=== PATIENT | female | born 1945 | race Caucasian/White ===

== ENCOUNTER 2019-11-08 02:41 | Emergency (ER) | payer MEDICARE, OTHER ==
[2019-11-08] MEDS ORDERED: MORPHINE SULFATE 2 MG INJ IV ONE (03:08)
[2019-11-08] MEDS ORDERED: Zofran 4 MG/2 ML VIAL IV ONE (03:08)
[2019-11-08] MEDS ORDERED: Sodium Chloride 0.9% 1000 ML 1,000 ML ONE (03:15)
[2019-11-08] MEDS ORDERED: Zofran 4 MG/2 ML VIAL ONE (03:15)
[2019-11-08] MEDS ORDERED: MORPHINE SULFATE 2 MG INJ ONE (03:15)
[2019-11-08] MEDS ORDERED: Sodium Chloride 0.9% 1000 ML 1,000 ML IV SCH (03:15)
--- NOTE | 2019-11-08 03:16 | ERPHSYRPT ---
- History of Present Illness Historian: patient, family Exam Limitations: no limitations Patient Subjective Stated Complaint: Patient states " I was sleeping and then the pain woke me up". Patient states my stomach just started burning. Triage Nursing Assessment: Patient arrived to ER with [facility]. Patient overall color pale. Patient with complaints of pain to center of ABD that radiates into back that is intermittent. Patient denies pain or discomfort upon palpitation. Patient with hyperactive BS in all 4 quads. ABD soft round non-distended. Patient denies loose stools, Nausea, and vomiting. Patient states last BM was which she states was normal for her. No edema present. Urine collected. Yellow in color. Oral mucosa slightly dry yet pink in color. Last oral intake per patient 11/07/19. Physician History: Sudden onset of upper abd pain with radiation to RUQ. No fever. No NVD. Hx of constipation. Pt has been feeling bloated for some time but having dailoy BMs. Timing/Duration: hour(s) (3) Activities at Onset: sleep Quality: burning Abdominal Pain Onset Location: periumbilical Pain Radiation: back Severity of Pain-Max: severe Severity of Pain-Current: moderate Modifying Factors: Improves With: nothing Associated Symptoms: back Previous symptoms: same symptoms as today (same onset but didn't come to ER 1 yr ago), no recent treatment Allergies/Adverse Reactions: codeine Allergy (Verified 11/08/19 02:49) Penicillins Allergy (Verified 11/08/19 02:47) Home Medications: Linaclotide [Linzess] 72 mcg PO DAILY 11/08/19 [History] Polyethylene Glycol 3350 [Miralax] 17 gm PO DAILY 11/08/19 [History] Rosuvastatin Calcium 10 mg PO DAILY 11/08/19 [History] Hx Tetanus, Diphtheria Vaccination/Date Given: No Hx Influenza Vaccination/Date Given: Yes Hx Pneumococcal Vaccination/Date Given: Yes Immunizations Up to Date: Yes - Review of Systems Constitutional: No Fever, No Chills Eyes: No Symptoms Ears, Nose, & Throat: No Symptoms Respiratory: No Cough, No Dyspnea Cardiac: No Chest Pain, No Edema, No Syncope Abdominal/Gastrointestinal: Abdominal Pain, No Nausea, No Vomiting, No Diarrhea Genitourinary Symptoms: No Dysuria Musculoskeletal: No Back Pain, No Neck Pain Skin: No Rash Neurological: No Dizziness, No Focal Weakness, No Sensory Changes Psychological: No Symptoms Endocrine: No Symptoms All Other Systems: Reviewed and Negative - Past Medical History Neurological History: No Pertinent History ENT History: Cataracts Cardiac History: High Cholesterol Respiratory History: No Pertinent History Endocrine Medical History: No Pertinent History Musculoskeletal History: No Pertinent History GI Medical History: Diverticulosis, Polyps History: No Pertinent History Psycho-Social History: No Pertinent History Female Reproductive Disorders: No Pertinent History - Past Surgical History Past Surgical History: Yes Neuro Surgical History: No Pertinent History Cardiac: No Pertinent History Respiratory: No Pertinent History Gastrointestinal: Cholecystectomy Genitourinary: No Pertinent History Musculoskeletal: No Pertinent History Female Surgical History: Hysterectomy - Social History Smoking Status: Never smoker Exposure to second hand smoke: Yes Drug Use: none Patient Lives Alone: No Significant Family History: no pertinent family hx - Female History Hx Last Menstrual Period: POST Hx Now: No - Nursing Vital Signs Nursing Vital Signs: Initial Vital Signs Temperature 97.1 F 11/08/19 02:59 Pulse Rate 68 11/08/19 02:59 Respiratory Rate 18 11/08/19 02:59 Blood Pressure 168/66 11/08/19 02:59 O2 Sat by Pulse Oximetry 100 11/08/19 02:59 Pain Scale Pain Intensity 0 - Physical Exam General Appearance: no apparent distress, alert Eye Exam: PERRL/EOMI, eyes nml inspection Ears, Nose, Throat Exam: normal ENT inspection, pharynx normal, moist mucous membranes Neck Exam: normal inspection, non-tender, supple, full range of motion Respiratory Exam: normal breath sounds, lungs clear, No respiratory distress Cardiovascular Exam: regular rate/rhythm, normal heart sounds Gastrointestinal/Abdomen Exam: soft, normal bowel sounds, tenderness ( epigastric and RUQ), No mass, No guarding, No organomegaly Pelvic Exam: not done Rectal Exam: deferred Back Exam: normal inspection, normal range of motion, No CVA tenderness, No vertebral tenderness Extremity Exam: normal inspection, normal range of motion, pelvis stable Neurologic Exam: alert, oriented x 3, cooperative, normal mood/affect, nml cerebellar function, sensation nml, No motor deficits Skin Exam: normal color, warm, dry SpO2: 100 - Course Nursing assessment & vital signs reviewed: Yes EKG Interpreted by Me: Sinus Rhythm, NORMAL AXIS, NORMAL INTERVALS, NORMAL QRS - CT Exams Abdomen/Pelvis CT Interpretation: Tele-radiologist Report, Other (large [id number] cystic mass in right ovary) Ordered Tests: Active Orders 24 hr Category Date Time Status EKG-ER Only STAT Care 11/08/19 03:08 Active IV Insertion STAT Care 11/08/19 03:08 Active NPO (ED) STAT Care 11/08/19 03:08 Active ABDOMEN AND PELVIS W CONTRAST [CT] Stat Exams 11/08/19 03:30 Taken BMP Stat Lab 11/08/19 03:21 Completed CBC W DIFF Stat Lab 11/08/19 03:21 Completed Hepatic Function Panel Stat Lab 11/08/19 03:21 Completed LIPASE Stat Lab 11/08/19 03:21 Completed PROTIME WITH INR Stat Lab 11/08/19 03:21 Completed TROPONIN Q3H Lab 11/08/19 03:21 Completed UA W/RFX UR CULTURE Stat Lab 11/08/19 03:21 Completed Medication Summary Generic Name Dose Route Start Last Admin Trade Name Freq PRN Reason Stop Dose Admin Sodium Chloride 1,000 mls @ 200 mls/hr 11/08/19 03:15 11/08/19 03:21 Sodium Chloride 0.9% 1000 Ml IV 12/08/19 03:14 200 mls/hr .Q5H LEI Administration Discontinued Medications Generic Name Dose Route Start Last Admin Trade Name Freq PRN Reason Stop Dose Admin Morphine Sulfate 2 mg 11/08/19 03:08 11/08/19 03:20 Morphine Sulfate 2 Mg Inj IV 11/08/19 03:09 2 mg STAT ONE Administration Morphine Sulfate Confirm 11/08/19 03:15 Morphine Sulfate 2 Mg Inj Administered 11/08/19 03:16 Dose 2 mg .ROUTE .STK-MED ONE Ondansetron HCl 4 mg 11/08/19 03:08 11/08/19 03:19 Zofran 4 Mg/2 Ml Vial IV 11/08/19 03:09 4 mg STAT ONE Administration Ondansetron HCl Confirm 11/08/19 03:15 Zofran 4 Mg/2 Ml Vial Administered 11/08/19 03:16 Dose 4 mg .ROUTE .STK-MED ONE Lab/Rad Data: Laboratory Result Diagrams 11/08/19 03:21 11/08/19 03:21 Laboratory Results 11/08/19 11/08/19 11/08/19 Range/Units 03:21 03:21 03:21 WBC (4.0-10.5) K/mm3 RBC (4.1-5.4) M/mm3 Hgb (12.0-16.0) gm/dl Hct (35-47) % MCV (78-100) fl MCH (26-32) pg MCHC (32-36) g/dl RDW (11.5-14.0) % Plt Count (150-450) K/mm3 MPV (7.5-11.0) fl Gran % (36.0-66.0) % Eos # (Auto) (0-0.5) Absolute Lymphs (auto) (1.0-4.6) Absolute Monos (auto) (0.0-1.3) Lymphocytes % (24.0-44.0) % Monocytes % (0.0-12.0) % Eosinophils % (0.00-5.0) % Basophils % (0.0-0.4) % Absolute Granulocytes (1.4-6.9) Basophils # (0-0.4) PT 11.8 (9.95-12.35) SECONDS INR 1.04 (0.8-3.0) Sodium (137-145) mmol/L Potassium (3.5-5.1) mmol/L Chloride (98-107) mmol/L Carbon Dioxide (22-30) mmol/L Anion Gap (5-15) MEQ/L BUN (7-17) mg/dL Creatinine (0.52-1.04) mg/dL Estimated GFR ML/MIN Glucose (74-106) mg/dL Calcium (8.4-10.2) mg/dL Total Bilirubin (0.2-1.3) mg/dL Direct Bilirubin (0.0-0.4) mg/dL AST (14-36) U/L ALT (0-35) U/L Alkaline Phosphatase (38-126) U/L Troponin I < 0.012 (0.000-0.034) ng/mL Serum Total Protein (6.3-8.2) g/dL Albumin (3.5-5.0) g/dL Lipase (23-300) U/L Urine Color YELLOW (YELLOW) Urine Appearance CLEAR (CLEAR) Urine pH 6.0 (5-6) Ur Specific Stuart 1.011 (1.005-1.025) Urine Protein NEGATIVE (Negative) Urine Ketones NEGATIVE (NEGATIVE) Urine Blood NEGATIVE (0-5) Larry/ul Urine Nitrite NEGATIVE (NEGATIVE) Urine Bilirubin NEGATIVE (NEGATIVE) Urine Urobilinogen NEGATIVE (0-1) mg/dL Ur Leukocyte Esterase NEGATIVE (NEGATIVE) Urine WBC (Auto) 3-5 (0-5) /HPF Urine RBC (Auto) 0-2 (0-2) /HPF U Epithel Cells (Auto) RARE (FEW) /HPF Urine Bacteria (Auto) NONE (NEGATIVE) /HPF Urine Mucus (Auto) SLIGHT (NEGATIVE) /HPF Urine Culture Reflexed NO (NO) Urine Glucose NEGATIVE (NEGATIVE) mg/dL 11/08/19 11/08/19 Range/Units 03:21 03:21 WBC 8.2 (4.0-10.5) K/mm3 RBC 4.80 (4.1-5.4) M/mm3 Hgb 13.9 (12.0-16.0) gm/dl Hct 42.4 (35-47) % MCV 88.3 (78-100) fl MCH 29.0 (26-32) pg MCHC 32.8 (32-36) g/dl RDW 12.9 (11.5-14.0) % Plt Count 224 (150-450) K/mm3 MPV 10.2 (7.5-11.0) fl Gran % 57.3 (36.0-66.0) % Eos # (Auto) 0.17 (0-0.5) Absolute Lymphs (auto) 2.58 (1.0-4.6) Absolute Monos (auto) 0.71 (0.0-1.3) Lymphocytes % 31.7 (24.0-44.0) % Monocytes % 8.7 (0.0-12.0) % Eosinophils % 2.1 (0.00-5.0) % Basophils % 0.2 (0.0-0.4) % Absolute Granulocytes 4.67 (1.4-6.9) Basophils # 0.02 (0-0.4) PT (9.95-12.35) SECONDS INR (0.8-3.0) Sodium 140 (137-145) mmol/L Potassium 3.4 L (3.5-5.1) mmol/L Chloride 107 (98-107) mmol/L Carbon Dioxide 27 (22-30) mmol/L Anion Gap 9.2 (5-15) MEQ/L BUN 11 (7-17) mg/dL Creatinine 0.66 (0.52-1.04) mg/dL Estimated GFR > 60.0 ML/MIN Glucose 109 H (74-106) mg/dL Calcium 9.4 (8.4-10.2) mg/dL Total Bilirubin 0.50 (0.2-1.3) mg/dL Direct Bilirubin 0.2 (0.0-0.4) mg/dL AST 24 (14-36) U/L ALT 15 (0-35) U/L Alkaline Phosphatase 88 (38-126) U/L Troponin I (0.000-0.034) ng/mL Serum Total Protein 7.7 (6.3-8.2) g/dL Albumin 4.4 (3.5-5.0) g/dL Lipase 162 (23-300) U/L Urine Color (YELLOW) Urine Appearance (CLEAR) Urine pH (5-6) Ur Specific Stuart (1.005-1.025) Urine Protein (Negative) Urine Ketones (NEGATIVE) Urine Blood (0-5) Larry/ul Urine Nitrite (NEGATIVE) Urine Bilirubin (NEGATIVE) Urine Urobilinogen (0-1) mg/dL Ur Leukocyte Esterase (NEGATIVE) Urine WBC (Auto) (0-5) /HPF Urine RBC (Auto) (0-2) /HPF U Epithel Cells (Auto) (FEW) /HPF Urine Bacteria (Auto) (NEGATIVE) /HPF Urine Mucus (Auto) (NEGATIVE) /HPF Urine Culture Reflexed (NO) Urine Glucose (NEGATIVE) mg/dL - Progress Progress: improved Progress Note: 11/08/19 06:[address] scan. Labs all within normal limits including normal urinalysis. CT scan did show a large right ovarian cyst/mass with the size of 15 x 11 x 10. Discussed with patient about follow-up with [facility] for further care. Patient in agreement. With Dr. Herrera recommends getting Ca-125 level and CEA level. Considering eventual referral to [facility] oncology given the size. We will see patient in his office for further care and possible referral. Angel with patient about plans from Dr. Herrera they are in agreement. Will discharge home. Discussed with : Quincy Will see patient in: office Counseled pt/family regarding: lab results, diagnosis, need for follow-up, rad results - Departure Departure Disposition: Home Clinical Impression: Ovarian cyst, right, Ovarian cystic mass Condition: Stable Critical Care Time: No Referrals: MOISES CLAYTON MD [Primary Care Provider] - CURLY HERRERA DO [ACTIVE STAFF] - Instructions: Ovarian Cyst (DC) Additional Instructions: Monitor symptoms closely. Take medication as provided. Use [id number] Tylenol Motrin first if able. Follow-up with [facility] as discussed. Return to ER if worse. Prescriptions: Hydrocodone/APAP 5/325 [[place] 5/325 mg] 1 each PO Q6H PRN PRN #10 tablet MDD 20mg PRN Reason: Pain
[2019-11-08 03:19] LABS: Absolute Neutrophil Ct (ANC) 4.67 (1.4-6.9); BASOPHIL % 0.2 % (0.0-0.4); Basophil (Absolute #) 0.02 (0-0.4); Eosinophil % 2.1 % (0.00-5.0); Eosinophil (Absolute #) 0.17 (0-0.5); Hematocrit 42.4 % (35-47); Hemoglobin 13.9 gm/dl (12.0-16.0); Lymphocyte (Absolute #) 2.58 (1.0-4.6); Lymphocytes % 31.7 % (24.0-44.0); Mean Cell Volume 88.3 fl (78-100); Mean Corpuscular Hgb Concent. 32.8 g/dl (32-36); Mean Platelet Volume 10.2 fl (7.5-11.0); Monocyte (Absolute #) 0.71 (0.0-1.3); Monocytes % 8.7 % (0.0-12.0); Neutrophil % 57.3 % (36.0-66.0); Platelet Count 224 K/mm3 (150-450); Red Cell Distribution Width 12.9 % (11.5-14.0); White Blood Count 8.2 K/mm3 (4.0-10.5)
[2019-11-08 03:26] LABS: INR 1.04 (0.8-3.0); PROTIME 11.8 SECONDS (9.95-12.35)
[2019-11-08 03:30] LABS: ALBUMIN 4.4 g/dL (3.5-5.0); ALKALINE PHOSPHATASE 88 U/L (38-126); ANION GAP 9.2 MEQ/L (5-15); BLOOD UREA NITROGEN 11 mg/dL (7-17); CHLORIDE 107 mmol/L (98-107); Calcium 9.4 mg/dL (8.4-10.2); Carbon Dioxide 27 mmol/L (22-30); Creatinine 1 0.66 mg/dL (0.52-1.04); Direct Bilirubin 0.2 mg/dL (0.0-0.4); Glucose 109 mg/dL (74-106); LIPASE 162 U/L (23-300); Potassium 3.4 mmol/L (3.5-5.1); SGOT/AST 24 U/L (14-36); SGPT/ALT 15 U/L (0-35); SODIUM 140 mmol/L (137-145); Total Protein 7.7 g/dL (6.3-8.2)
[2019-11-08 03:37] LABS: Appearance CLEAR (CLEAR); Bilirubin NEGATIVE (NEGATIVE); Blood NEGATIVE Ery/ul (0-5); Epithelial Cells RARE /HPF (FEW); Glucose NEGATIVE (NEGATIVE); Ketones NEGATIVE (NEGATIVE); Leukocyte Esterase NEGATIVE (NEGATIVE); Mucus SLIGHT /HPF (NEGATIVE); Nitrite NEGATIVE (NEGATIVE); Protein,Urine Dip NEGATIVE (Negative); RBC 0-2 /HPF (0-2); Specific Gravity 1.011 (1.005-1.025); Urobilinogen NEGATIVE mg/dL (0-1)
[2019-11-08 06:59] VITALS: BP 139/60
[2019-11-08 07:15] VITALS: PULSE 69; O2SAT 96
--- NOTE | 2019-11-08 08:53 | XRAY ---
Indication: Epigastric and right upper quadrant pain. Multiple contiguous axial images obtained through the abdomen and pelvis using 100 cc Isovue 370 contrast. Enteric contrast also used. Comparison: None Lung bases demonstrate minimal bilateral atelectasis/scarring. No infiltrate or effusion. Heart is not enlarged. Small hiatal hernia. Contrast in the distal esophagus presumed from gastroesophageal reflux. Contrasted stomach and bowel loops appear nonobstructed. Normal appendix. There is a 15.3 x 10.8 x 11.2 cm simple appearing cystic mass in the pelvis possibly ovary in etiology. Partial hysterectomy and cholecystectomy reported. No free fluid/air. Remaining liver, pancreas, spleen, adrenal glands, kidneys, ureters, and bladder appear unremarkable. Mild scattered aortoiliac calcifications. No AAA or pathologic retroperitoneal lymphadenopathy. Osseous structures intact with minimal/mild degenerative changes throughout the thoracolumbar spine. Mild double curvature scoliosis. Impression: 1. Large cystic mass in the pelvis as detailed possibly ovary in etiology. 2. Incidental hiatal hernia with probable gastroesophageal reflux. 3. Remaining CT abdomen/pelvis with contrast exam is negative. Comment: Preliminary interpretation was made by [facility]. No critical discrepancy.
[2019-11-09 09:12] LABS: CA 125 8.8 U/mL (0.0-35.0); CARCINOEMBRYONIC ANTIGEN 1.7 ng/mL (0.0-3.1)
== END 2019-11-08 07:16 | disposition home or self-care (01) ==
LOC: ED 02:41
DX: N83.201 Unspecified ovarian cyst, right side (principal); R10.13 Epigastric pain; R10.11 Right upper quadrant pain; Z79.899 Other long term (current) drug therapy
CPT/HCPCS: 36000; 36415; 74177; 80048; 80076; 81001; 82378; 83690; 84484; 85025; 85610; 86304; 93005; 96360; 96361; 96374; 96375; 99284; J2270; J2405

== ENCOUNTER 2019-11-23 07:53 | Day surgery (SDC) | payer MEDICARE, OTHER ==
[~2019-11-23 07:53] MED LIST: Lactated Ringers 1,000 ML IV ONE; Lactated Ringers 1,000 ML IV SCH; Sensorcaine 0.25% 10 ML ONE
[2019-11-23] MEDS ORDERED: Lactated Ringers 1,000 ML IV ONE (08:08)
[2019-11-23] MEDS ORDERED: CEFAZOLIN 2 GM-D5W BAG** 2 GM/50 ML ML IV ONE ×2 (08:11→08:37)
[2019-11-23] MEDS ORDERED: SUBLIMAZE 250 MCG/5 ML ONE (10:12)
[2019-11-23] MEDS ORDERED: Zemuron 100 MG/10 ML ONE (10:12)
[2019-11-23] MEDS ORDERED: Decadron 4 MG INJ ONE (10:12)
[2019-11-23] MEDS ORDERED: DIPRIVAN 200 MG/20 ML IV ONE (10:12)
[2019-11-23] MEDS ORDERED: Versed 2 MG/2 ML Injection ONE (10:12)
[2019-11-23] MEDS ORDERED: Zofran 4 MG/2 ML VIAL ONE (10:12)
[2019-11-23] MEDS ORDERED: Xylocaine-Mpf 2% 5 Ml Vial ONE (10:14)
[2019-11-23] MEDS ORDERED: BRIDION 200MG/2ML IV ONE (11:47)
[2019-11-23] MEDS ORDERED: SUBLIMAZE 100 MCG/2 ML ONE (12:24)
[2019-11-23] MEDS ORDERED: MORPHINE SULFATE 10 MG/ML ONE (12:41)
[2019-11-23] MEDS ORDERED: CEPACOL SORE THROAT LOZENGE PO PRN (13:50)
[2019-11-23] MEDS ORDERED: Transderm Scop 1.5MG Patch TOP ONE (15:34)
[2019-11-23] MEDS ORDERED: Zofran 4 MG/2 ML VIAL IV STA (15:35)
[2019-11-23 15:56] VITALS: BP 117/70; PULSE 78; O2SAT 97
--- NOTE | 2019-11-24 09:46 | OP ---
SURGERY DATE/TIME: 11/23/2019 1038 PREOPERATIVE DIAGNOSIS: Large pelvic mass. POSTOPERATIVE DIAGNOSIS: Large right ovarian cyst and pelvic adhesion. PROCEDURES: Laparoscopic right salpingo-oophorectomy, removal of pelvic mass and lysis of pelvic adhesions. SURGEON: Sanjay Herrera D.O. WASTEWATER ENGINEER: Estuardo Manzo surgical dental assistant. ANESTHESIA: General. ESTIMATED BLOOD LOSS: Minimal. COMPLICATIONS: None. INDICATIONS: The risks, benefits, indications and alternatives of the procedure were reviewed with the patient prior to the procedure. The patient understood the risk of infection, bleeding, bowel injury, bladder injury, ureteral injury, incisional hernia, pelvic infection, thromboembolic disorder, possible cancer that may ensue however desires to have this surgery as a possible need to alleviate her current medical condition. DESCRIPTION OF PROCEDURE AND FINDINGS: From this point the patient is taken to the operating room, given general sedation, placed in dorsal lithotomy position, prepped and draped in usual sterile fashion. From this point a 5 mm skin incision was made approximately 2 cm superior to the umbilicus where a 5 mm trocar and sleeve were advanced under direct visualization where pneumoperitoneum was obtained with 4 liters of CO2 gas. An additional incision was made in the left middle quadrant region where 5 mm incision was made and 5 mm trocar and sleeve were advanced under direct visualization. Visualization appeared the patient to have approximately as measured prior to the procedure a 15 x 12 cm right ovarian cyst with no excrescences located on the surface of the ovary and there were no solid masses that were noted and there were no gross abnormalities located on the surface of the ovary. An additional incision was made where a 10 mm trocar and sleeve were placed 2 cm above the symphysis pubis where the trocar and sleeve were advanced under direct visualization. From this point a needle was then placed in through the cystic portion and retrieval of approximately 15 cc was removed and sent for cytology. The remaining portion of the cystic portion was suctioned in its entirety with minimal spillage that was noted perhaps approximately less than 2 to 3 cc that was noted. From this point after complete suctioning of the entire cystic content, the cystic portion was then grasped with atraumatic grasper and was lifted and the LigaSure was used and was clamped over the right infundibulopelvic ligament where it was clamped, coagulated and cut through the infundibulopelvic ligament in its entirety. Hemostasis was obtained. Removing the entire cystic and ovarian portion of the right adnexa and was done so without complication. From this point secondary to adhesions located on the left adnexa between the bowel on the right and the right lower quadrant region, it was difficult to access and obtaining the left adnexa and left ovary. However after moving the bowel over it was visualized to be within normal limits however not easily accessible for removal. From this point there were adhesions between the left colon and left abdominal side wall which were lysed and were easily brought down from the left abdominal side wall. There was no bleeding that was noted on this side. From this point there was extensive irrigation was made since removing the right adnexa. There were dense adhesions that were noted on the right middle to upper quadrant between the bowel on the right side wall which were left alone secondary to the dense adhesions between the bowel and the right upper quadrant abdominal side wall. From this point the incision was then extended and the right adnexa were placed in Endo Catch bag and were removed in its entirety without complications from the suprapubic port. At this point after removal of the cystic portion of the ovary there were no other gross abnormalities located within the abdominal or pelvic region. At this point a Nathaniel-Georgie suture was used to close the fascia at the suprapubic port and was done so without complications and 0 Vicryl suture. From this point the gas is then released and the trocars removed from the abdominal region. The incisions were subsequently closed with 4-0 Monocryl suture with subsequent Dermabond on the surface. The patient was then taken out of the dorsal lithotomy position, taken out of anesthesia and was then taken to the recovery room in stable condition. All instruments and laps were accounted for x2.
== END 2019-11-23 16:05 | disposition home or self-care (01) ==
LOC: SDC 07:53
PROVIDERS: ATTEND Obstetrics & Gynecology
DX: N83.201 Unspecified ovarian cyst, right side (principal); N73.6 Female pelvic peritoneal adhesions (postinfective); Z79.899 Other long term (current) drug therapy
CPT/HCPCS: 36415; 84132; 88173; J0690; J1100; J2250; J2270; J2405; J2704; J3010; A9270-GY

== ENCOUNTER 2024-03-28 16:38 | Emergency (ER) | payer MEDICARE ==
[2024-03-28 17:17] VITALS: BP 150/73; PULSE 88; RESP 20; TEMP 97.6; O2SAT 95
--- NOTE | 2024-03-28 17:52 | ERPHSYRPT ---
- History of Present Illness Time Seen by Provider: 03/28/24 17:37 Source: patient, family (daughter) Exam Limitations: no limitations Patient Subjective Stated Complaint: Confusion Triage Nursing Assessment: Patient ambulated back to ED and transferred self to bed. Patient A+O X3. Patient's skin pink, warm and dry. Patient compains of increased confusion over the past few days. Patient left home on 03/19/2024 to go on a cruise. Patient has not had a lot of sleep. Patient also started taking Meclizine 50mg daily for 7 days. Patient states she has been having a headache on and off, but currently denies pain or discomfort. Patient states she feels "foggy". Patient also complains of intermittent productive cough. Physician History: For the past 3 months pt has had an intermittent frontal headache lasting up to 2 days; for the past 5 days dizziness(off balance); for the past 3 days chills and a cough productive of clear phlegm; today earaches. Pt denies chest pain, shortness of air, fever. Allergies/Adverse Reactions: codeine Allergy (Verified 03/28/24 16:52) Vomiting Penicillins Allergy (Verified 03/28/24 16:52) Itching states "my hands itched ,it was about 45 y[address] ago" Dr Herrera states "she should be good to receive the med" Home Medications: Linaclotide [Linzess] 72 mcg PO DAILY 11/08/19 [History] Polyethylene Glycol 3350 [Miralax] 17 gm PO DAILY 11/08/19 [History] Rosuvastatin Calcium 10 mg PO DAILY 11/08/19 [History] Hx Tetanus, Diphtheria Vaccination/Date Given: No Hx Influenza Vaccination/Date Given: Yes Hx Pneumococcal Vaccination/Date Given: Yes Immunizations Up to Date: Yes Travel Risk - International Travel Have you traveled outside of the country in past 3 weeks: No - Emerging Infectious Disease Are you exhibiting symptoms associated with any current EIDs: No - Review of Systems Constitutional: Chills, No Fever Ears, Nose, & Throat: Ear Pain Respiratory: Cough, No Dyspnea Cardiac: No Chest Pain Abdominal/Gastrointestinal: No Abdominal Pain, No Vomiting Neurological: Dizziness, Headache - Past Medical History Pertinent Past Medical History: Yes Neurological History: Migraines ENT History: Cataracts Cardiac History: High Cholesterol Respiratory History: No Pertinent History Endocrine Medical History: No Pertinent History Musculoskeletal History: Osteoarthritis GI Medical History: Diverticulosis, Polyps History: No Pertinent History Psycho-Social History: No Pertinent History Female Reproductive Disorders: No Pertinent History Other Medical History: HX LEFT SHOULDER SPRAIN AND HAD THERAPY - Past Surgical History Past Surgical History: Yes Neuro Surgical History: No Pertinent History Cardiac: No Pertinent History Respiratory: No Pertinent History Gastrointestinal: Cholecystectomy Genitourinary: No Pertinent History Musculoskeletal: No Pertinent History Female Surgical History: Hysterectomy, Tubal Ligation Other Surgical History: 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, cataract surgery bilateral Significant Family History: no pertinent family hx - Social History Smoking Status: Never smoker Exposure to second hand smoke: Yes Drug Use: none Patient Lives Alone: No - Social Determinants of Health Will the patient participate in the screening: Yes Do you worry about a steady place to live?: No Do you have any problems with any of the following?: No known problems In the past 12 months,have you had to go without utilities?: No Transportation Issues: No Has anyone in your support network made you feel unsafe?: No Have you or anyone in your house had to go without enough: No - Nursing Vital Signs Nursing Vital Signs: Initial Vital Signs Temperature 97.6 F 03/28/24 16:57 Pulse Rate 88 03/28/24 16:57 Respiratory Rate 20 03/28/24 16:57 Blood Pressure 150/73 03/28/24 16:57 O2 Sat by Pulse Oximetry 95 03/28/24 16:57 Pain Scale Pain Intensity 0 - Physical Exam General Appearance: alert Eye Exam: PERRL/EOMI Ears, Nose, Throat Exam: TMs normal, pharyngeal erythema Neck Exam: normal inspection Respiratory Exam: normal breath sounds Cardiovascular Exam: normal heart sounds Gastrointestinal/Abdominal Exam: normal bowel sounds Extremity Exam: normal inspection Mental Status Exam: alert, oriented x 3, 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 See rest of report.) Ordered Tests: Active Orders 24 hr Category Date Time Status EKG-ER Only STAT Care 03/28/24 17:53 Active IV Insertion STAT Care 03/28/24 17:53 Active CHEST 2 VIEWS (PA AND LAT) Stat Exams 03/28/24 17:53 Completed HEAD WITHOUT CONTRAST [CT] Stat Exams 03/28/24 17:54 Completed AMYLASE Stat Lab 03/28/24 17:00 Completed CBC W DIFF Stat Lab 03/28/24 17:00 Completed CMP Stat Lab 03/28/24 17:00 Completed CULTURE,URINE Stat Lab 03/28/24 17:55 Received LIPASE Stat Lab 03/28/24 17:00 Completed MAGNESIUM Stat Lab 03/28/24 17:00 Completed MONO SCREEN Stat Lab 03/28/24 17:00 Completed TROPONIN Q4H Lab 03/28/24 17:00 Completed TROPONIN Q4H Lab 03/28/24 22:00 Ordered TROPONIN Q4H Lab 03/29/24 02:00 Ordered UA W/RFX UR CULTURE Stat Lab 03/28/24 17:55 Completed Medication Summary Generic Name Dose Route Start Last Admin Trade Name Freq PRN Reason Stop Dose Admin Sodium Chloride 1,000 mls @ 100 mls/hr 03/28/24 18:00 03/28/24 18:00 Sodium Chloride 0.9% 1000 Ml IV 04/27/24 17:59 100 mls/hr .Q10H LEI Administration Lab/Rad Data: Laboratory Result Diagrams 03/28/24 17:00 03/28/24 17:00 Laboratory Results 03/28/24 03/28/24 03/28/24 Range/Units 18:30 18:30 17:55 WBC (3.98-10.04) x10^3/uL RBC (3.93-5.22) x10^6/uL Hgb (11.2-15.7) g/dL Hct (34.1-44.9) % MCV (79.4-94.8) fL MCH (25.6-32.2) pg MCHC (32.2-35.5) g/dL RDW (11.7-14.4) % Plt Count (182-369) x10^3/uL MPV (9.4-12.3) fL Gran % (34.0-71.1) % Immature Gran % (Auto) (0.001-0.429) % Nucleat RBC Rel Count (0.00-0.2) % Eos # (Auto) (0.04-0.36) x10^3/uL Immature Gran # (Auto) (0.001-0.031) x10^3u/L Absolute Lymphs (auto) (1.18-3.74) x10^3/uL Absolute Monos (auto) (0.24-0.86) x10^3/uL Absolute Nucleated RBC (0.00-0.012) x10^3u/L Lymphocytes % (19.3-51.7) % Monocytes % (4.7-12.5) % Eosinophils % (0.7-5.8) % Basophils % (0.1-1.2) % Absolute Granulocytes (1.56-6.13) x10^3/uL Basophils # (0.01-0.08) x10^3/uL Sodium (135-145) mmol/L Potassium (3.5-5.1) mmol/L Chloride (98-107) mmol/L Carbon Dioxide (22-30) mmol/L Anion Gap (5-15) MEQ/L BUN (7-17) mg/dL Creatinine (0.52-1.04) mg/dL Estimated GFR ML/MIN Glucose (74-106) mg/dL Calcium (8.4-10.2) mg/dL Magnesium (1.6-2.3) mg/dL Total Bilirubin (0.2-1.3) mg/dL AST (14-36) U/L ALT (0-35) U/L Alkaline Phosphatase (38-126) U/L Troponin I (0.000-0.033) ng/mL Serum Total Protein (6.3-8.2) g/dL Albumin (3.5-5.0) g/dL Amylase (30-110) U/L Lipase (23-300) U/L Urine Color Yellow (Yellow) Urine Appearance Clear (Clear) Urine pH 5.5 (4.6-8.0) Ur Specific [place] 1.020 (1.005-1.030) Urine Protein 30 (Negative) Urine Glucose (UA) Negative (Negative) mg/dL Urine Ketones 40 A (Negative) Urine Blood Negative (Negative) Urine Nitrite Negative (Negative) Urine Bilirubin Negative (Negative) Urine Urobilinogen 1.0 A (0.2) mg/dL Ur Leukocyte Esterase Small A (Negative) U Hyaline Cast (Auto) 3-5 A (0-2) /LPF Urine Microscopic RBC NONE SEEN (0-5) /HPF Urine Microscopic WBC 3-5 (0-5) /HPF Ur Epithelial Cells Few (None Seen) /HPF Urine Bacteria Rare A (None Seen) /HPF Urine Culture Reflexed YES (NO) Monoscreen (NEGATIVE) Influenza Type A Ag NEGATIVE (NEGATIVE) Influenza Type B Ag NEGATIVE (NEGATIVE) RSV (PCR) NEGATIVE (NEGATIVE) SARS-CoV-2 (PCR) POSITIVE A (NEGATIVE) Group A Strep Antibody NOT DETECTED (NEGATIVE) 03/28/24 03/28/24 03/28/24 Range/Units 17:00 17:00 17:00 WBC (3.98-10.04) x10^3/uL RBC (3.93-5.22) x10^6/uL Hgb (11.2-15.7) g/dL Hct (34.1-44.9) % MCV (79.4-94.8) fL MCH (25.6-32.2) pg MCHC (32.2-35.5) g/dL RDW (11.7-14.4) % Plt Count (182-369) x10^3/uL MPV (9.4-12.3) fL Gran % (34.0-71.1) % Immature Gran % (Auto) (0.001-0.429) % Nucleat RBC Rel Count (0.00-0.2) % Eos # (Auto) (0.04-0.36) x10^3/uL Immature Gran # (Auto) (0.001-0.031) x10^3u/L Absolute Lymphs (auto) (1.18-3.74) x10^3/uL Absolute Monos (auto) (0.24-0.86) x10^3/uL Absolute Nucleated RBC (0.00-0.012) x10^3u/L Lymphocytes % (19.3-51.7) % Monocytes % (4.7-12.5) % Eosinophils % (0.7-5.8) % Basophils % (0.1-1.2) % Absolute Granulocytes (1.56-6.13) x10^3/uL Basophils # (0.01-0.08) x10^3/uL Sodium 135 (135-145) mmol/L Potassium 3.5 (3.5-5.1) mmol/L Chloride 100 (98-107) mmol/L Carbon Dioxide 24 (22-30) mmol/L Anion Gap 14.4 (5-15) MEQ/L BUN 14 (7-17) mg/dL Creatinine 0.58 (0.52-1.04) mg/dL Estimated GFR 93.2 ML/MIN Glucose 95 (74-106) mg/dL Calcium 9.2 (8.4-10.2) mg/dL Magnesium 2.1 (1.6-2.3) mg/dL Total Bilirubin 0.80 (0.2-1.3) mg/dL AST 47 H (14-36) U/L ALT 35 (0-35) U/L Alkaline Phosphatase 92 (38-126) U/L Troponin I < 0.012 (0.000-0.033) ng/mL Serum Total Protein 7.4 (6.3-8.2) g/dL Albumin 4.4 (3.5-5.0) g/dL Amylase 68 (30-110) U/L Lipase 111 (23-300) U/L Urine Color (Yellow) Urine Appearance (Clear) Urine pH (4.6-8.0) Ur Specific [place] (1.005-1.030) Urine Protein (Negative) Urine Glucose (UA) (Negative) mg/dL Urine Ketones (Negative) Urine Blood (Negative) Urine Nitrite (Negative) Urine Bilirubin (Negative) Urine Urobilinogen (0.2) mg/dL Ur Leukocyte Esterase (Negative) U Hyaline Cast (Auto) (0-2) /LPF Urine Microscopic RBC (0-5) /HPF Urine Microscopic WBC (0-5) /HPF Ur Epithelial Cells (None Seen) /HPF Urine Bacteria (None Seen) /HPF Urine Culture Reflexed (NO) Monoscreen NEGATIVE (NEGATIVE) Influenza Type A Ag (NEGATIVE) Influenza Type B Ag (NEGATIVE) RSV (PCR) (NEGATIVE) SARS-CoV-2 (PCR) (NEGATIVE) Group A Strep Antibody (NEGATIVE) 03/28/24 Range/Units 17:00 WBC 4.8 (3.98-10.04) x10^3/uL RBC 4.56 (3.93-5.22) x10^6/uL Hgb 13.4 (11.2-15.7) g/dL Hct 39.9 (34.1-44.9) % MCV 87.5 (79.4-94.8) fL MCH 29.4 (25.6-32.2) pg MCHC 33.6 (32.2-35.5) g/dL RDW 12.5 (11.7-14.4) % Plt Count 152 L (182-369) x10^3/uL MPV 10.1 (9.4-12.3) fL Gran % 58.0 (34.0-71.1) % Immature Gran % (Auto) 0.2 (0.001-0.429) % Nucleat RBC Rel Count 0.0 (0.00-0.2) % Eos # (Auto) 0.04 (0.04-0.36) x10^3/uL Immature Gran # (Auto) 0.01 (0.001-0.031) x10^3u/L Absolute Lymphs (auto) 1.20 (1.18-3.74) x10^3/uL Absolute Monos (auto) 0.75 (0.24-0.86) x10^3/uL Absolute Nucleated RBC 0.00 (0.00-0.012) x10^3u/L Lymphocytes % 25.0 (19.3-51.7) % Monocytes % 15.6 H (4.7-12.5) % Eosinophils % 0.8 (0.7-5.8) % Basophils % 0.4 (0.1-1.2) % Absolute Granulocytes 2.78 (1.56-6.13) x10^3/uL Basophils # 0.02 (0.01-0.08) x10^3/uL Sodium (135-145) mmol/L Potassium (3.5-5.1) mmol/L Chloride (98-107) mmol/L Carbon Dioxide (22-30) mmol/L Anion Gap (5-15) MEQ/L BUN (7-17) mg/dL Creatinine (0.52-1.04) mg/dL Estimated GFR ML/MIN Glucose (74-106) mg/dL Calcium (8.4-10.2) mg/dL Magnesium (1.6-2.3) mg/dL Total Bilirubin (0.2-1.3) mg/dL AST (14-36) U/L ALT (0-35) U/L Alkaline Phosphatase (38-126) U/L Troponin I (0.000-0.033) ng/mL Serum Total Protein (6.3-8.2) g/dL Albumin (3.5-5.0) g/dL Amylase (30-110) U/L Lipase (23-300) U/L Urine Color (Yellow) Urine Appearance (Clear) Urine pH (4.6-8.0) Ur Specific [place] (1.005-1.030) Urine Protein (Negative) Urine Glucose (UA) (Negative) mg/dL Urine Ketones (Negative) Urine Blood (Negative) Urine Nitrite (Negative) Urine Bilirubin (Negative) Urine Urobilinogen (0.2) mg/dL Ur Leukocyte Esterase (Negative) U Hyaline Cast (Auto) (0-2) /LPF Urine Microscopic RBC (0-5) /HPF Urine Microscopic WBC (0-5) /HPF Ur Epithelial Cells (None Seen) /HPF Urine Bacteria (None Seen) /HPF Urine Culture Reflexed (NO) Monoscreen (NEGATIVE) Influenza Type A Ag (NEGATIVE) Influenza Type B Ag (NEGATIVE) RSV (PCR) (NEGATIVE) SARS-CoV-2 (PCR) (NEGATIVE) Group A Strep Antibody (NEGATIVE) - Progress Progress: unchanged Counseled pt/family regarding: lab results, diagnosis, need for follow-up, rad results Medical Desision Making - Diagnostic Testing Diagnostic test were ordered, analyzed, and reviewed by me: Yes Radiological Interpretation: Discussed w/ radiologist, Teleradiologist Report - Departure Departure Disposition: Home Clinical Impression: COVID-19, Headache, Dizziness Condition: Stable Critical Care Time: No Referrals: CULLEN SPENCE MD [Primary Care Provider] - Follow up/PCP as directed Instructions: Dizziness, Adult ED, COVID-19 ED Additional Instructions: Follow up with private doctor tomorrow. Self isolate for the next 10 days.
[2024-03-28] MEDS ORDERED: Sodium Chloride 0.9% 1000 ML 1,000 ML ONE (17:58)
[2024-03-28] MEDS: Sodium Chloride 0.9% 1000 ML 1,000 ML IV SCH (18:00)
[2024-03-28 18:04] LABS: Absolute Neutrophil Ct (ANC) 2.78 x10^3/uL (1.56-6.13); BASOPHIL % 0.4 % (0.1-1.2); Basophil (Absolute #) 0.02 x10^3/uL (0.01-0.08); Eosinophil % 0.8 % (0.7-5.8); Eosinophil (Absolute #) 0.04 x10^3/uL (0.04-0.36); Hematocrit 39.9 % (34.1-44.9); Hemoglobin 13.4 g/dL (11.2-15.7); IMMATURE GRAN # 0.01 x10^3u/L (0.001-0.031); IMMATURE GRAN % 0.2 % (0.001-0.429); Mean Cell Volume 87.5 fL (79.4-94.8); Mean Corpuscular Hemoglobin 29.4 pg (25.6-32.2); Mean Corpuscular Hgb Concent. 33.6 g/dL (32.2-35.5); Mean Platelet Volume 10.1 fL (9.4-12.3); Monocyte (Absolute #) 0.75 x10^3/uL (0.24-0.86); Monocytes % 15.6 % (4.7-12.5); Platelet Count 152 x10^3/uL (182-369); Red Blood Count 4.56 x10^6/uL (3.93-5.22); Red Cell Distribution Width 12.5 % (11.7-14.4); White Blood Count 4.8 x10^3/uL (3.98-10.04)
[2024-03-28 18:21] LABS: ALBUMIN 4.4 g/dL (3.5-5.0); ANION GAP 14.4 MEQ/L (5-15); BILIRUBIN,TOTAL 0.8 mg/dL (0.2-1.3); Calcium 9.2 mg/dL (8.4-10.2); Creatinine 1 0.58 mg/dL (0.52-1.04); EST GLOMERULAR FILTRATION RATE 93.2 ML/MIN; MAGNESIUM 2.1 mg/dL (1.6-2.3); Potassium 3.5 mmol/L (3.5-5.1); Total Protein 7.4 g/dL (6.3-8.2)
--- NOTE | 2024-03-28 18:50 | XRAY ---
Indication: Dizziness. Comparison: October 29, 2010 PA/lateral chest again demonstrates normal heart and lungs. Bony thorax intact again with osteopenia and mild degenerative changes. No acute findings.
[2024-03-28 18:53] LABS: Appearance Clear (Clear); Bilirubin Negative (Negative); Blood Negative (Negative); Glucose, Urine Negative (Negative); Ketones 40 (Negative); Leukocyte Esterase Small (Negative); Nitrite Negative (Negative); Ph 5.5 (4.6-8.0); Protein,Urine Dip 30 (Negative)
[2024-03-28 18:54] LABS: ADD URINE CULTURE? YES (NO); Bacteria Rare /HPF (None Seen); Epithelial Cells Few /HPF (None Seen); RBC NONE SEEN /HPF (0-5)
--- NOTE | 2024-03-28 18:58 | XRAY ---
CLINICAL HISTORY: dizziness COMPARISON: None. TECHNIQUE: An axial non-contrast CT scan of the brain was performed from the skull base up to the vertex in the bony and brain parenchymal windows with multiplanar reconstructions. One of the following dose-reduction techniques was utilized for this exam. Automated exposure control, adjustment of the mA and/or kV according to patient size, and use of iterative reconstruction. FINDINGS: Age-related cortical involutional changes are associated with a prominence of extra-axial cortical sulci, gyral pattern, and mild prominent lateral ventricles. Calcified density seen in the left parafalcine region measuring about 5X 11 mm suggesting calcified meningioma versus falx cerebri calcifications. There is normal oliva and white matter differentiation. No acute territorial infarct, bleed, mass effect, or hydrocephalus. No intracranial space-occupying lesion was noted. No midline shift. There is no mass lesion in either CP angle. Posterior fossa structures appear normal. Pineal and Choroid plexus calcifications noted [normal variant] The IACs are unremarkable. The skull bones appear normal. Visualized paranasal sinuses appear clear. Mastoid air cells are well-pneumatized. IMPRESSION: 1. No acute intracranial abnormality. 2. No acute territorial infarct, or hemorrhagic pathology. 3. Calcified density seen in the left parafalcine region suggesting calcified meningioma versus falx cerebri calcifications. 4. Early changes of acute ischemic infarct may sometimes not be detected on a CT scan. If clinically suspicious, MRI with diffusion-weighted imaging may be recommended for further evaluation. [facility] was called at [phone] at 6:51 PM EST, 03/28/2024 and Taylor was informed regarding the Negative stroke results on this report. Electronically Signed by: Isaura Jolley MD. (03/28/2024 18:53:09 EDT)
[2024-03-28 19:21] LABS: INFLUENZA A NEGATIVE (NEGATIVE); INFLUENZA B NEGATIVE (NEGATIVE); RESPIRATORY SYNCTIAL VIRUS NEGATIVE (NEGATIVE)
[2024-03-28 19:27] LABS: SARS-CoV-2 Xpert Express POSITIVE (NEGATIVE)
== END 2024-03-28 19:50 | disposition home or self-care (01) ==
LOC: ED 16:38
DX: U07.1 COVID-19 (principal); R51.9 Headache, unspecified; R42 Dizziness and giddiness; R05.1 Acute cough; H92.03 Otalgia, bilateral; E78.5 Hyperlipidemia, unspecified; Z79.899 Other long term (current) drug therapy
CPT/HCPCS: 0241U; 36000; 36415; 70450; 71046; 80053; 81001; 82150; 83690; 83735; 84484; 85025; 86308; 87086; 87651; 93005; 99284